=== PATIENT | female | born 1980 | race Two or more races ===

== ENCOUNTER 2018-08-20 20:19 | Emergency (ER) | payer MEDICAID ==
[~2018-08-20] VITALS: Ht 160 cm; Wt 80.7 kg
--- NOTE | 2018-08-20 20:45 | NUR ---
ED Nurse Note: pt walked in c/o right ankle pain, pt states she twisted her ankle 5months ago and continue to have pain. cms intact, ambulates w/ steady gait, clean dry and intact, cap refill <3 sec will cont monitor.
--- NOTE | 2018-08-20 21:02 | Emergency Room Report ---
History of Present Illness General Chief Complaint: Lower Extremity Injury Source: Patient Present Illness [facility] This is a 38-year-old female with no past medical history. She presents with chief point right ankle pain. She had injured his ankle 5 months ago. She rolled her ankle and had pain initially. Did not see any doctor. Since then she has intermittent pain but now worse when she walked. This has been ongoing for about a week. Pain is localized to the lateral aspect the ankle. No swelling. No fever. No trauma. Worse with walking. Better with rest. Allergies: Coded Allergies: No Known Allergies (Unverified , 08/20/18) Patient History Past Medical History: see triage record, old chart reviewed Past Surgical History: none Pertinent Family History: none Social History: Denies: smoking Now: No Immunizations: other Reviewed Nursing Documentation: PMH: Agreed; PSxH: Agreed Nursing Documentation-PMH Past Medical History: No Stated History Review of Systems Eye: Denies: eye pain, blurred vision ENT: Denies: ear pain, nose congestion, throat swelling Respiratory: Denies: cough, shortness of breath Cardiovascular: Denies: chest pain, palpitations Gastrointestinal: Denies: abdominal pain, diarrhea, nausea, vomiting Musculoskeletal: Reports: joint pain; Denies: back pain Skin: Denies: rash Neurological: Denies: headache, numbness Endocrine: Denies: increased thirst, increased urine Hematologic/Lymphatic: Denies: easy bruising All Other Systems: negative except mentioned in HPI Physical Exam Vital Signs Date Time Temp Pulse Resp B/P (MAP) Pulse Ox O2 Delivery O2 Flow Rate FiO2 08/20/18 20:35 97.9 73 16 162/77 97 Room Air vitals with high blood pressure Sp02 EP Interpretation: reviewed, normal General Appearance: well appearing, no apparent distress, alert Head: normocephalic, atraumatic Eyes: bilateral eye PERRL, bilateral eye EOMI ENT: hearing grossly normal, normal pharynx Neck: full range of motion, supple, no meningismus Respiratory: chest non-tender, lungs clear, normal breath sounds Cardiovascular #1: regular rate, rhythm, no murmur Gastrointestinal: normal bowel sounds, non tender, no mass, no organomegaly, no bruit, non-distended Musculoskeletal: back normal, gait/station normal, normal range of motion, other - Tender to palpation over lateral malleolus Psychiatric: mood/affect normal Skin: warm/dry Procedures Splinting Splinting : Consent: Verbal Location: Right ankle Pre-Made Type: JOSE ANTONIO wrap Pre-Proc Neuro Vasc Exam: normal Post-Proc Neuro Vasc Exam: normal Patient Tolerated: Well Complications: None Medical Decision Making Diagnostic Impression: Primary Impression: Right ankle sprain Qualified Codes: S93.401A - Sprain of unspecified ligament of right ankle, initial encounter ER Course Patient with right ankle pain from previous sprain. No fracture dislocation. No evidence of septic joint. We'll discharge home. Last Vital Signs Date Time Temp Pulse Resp B/P (MAP) Pulse Ox O2 Delivery O2 Flow Rate FiO2 08/20/18 20:35 97.9 73 16 162/77 97 Room Air Status: improved Disposition: HOME, SELF-CARE Condition: Stable Scripts Ibuprofen* (MOTRIN*) 600 Mg Tablet 600 MG ORAL THREE TIMES A DAY, #30 TAB 0 Refills Prov: Nj Damon MD 08/20/18 Patient Instructions: Ankle Sprain Additional Instructions: follow-up your doctor in 7 days. Return if symptoms worsen. Nj Damon MD Aug 20, 2018 21:02
[2018-08-20] MEDS ORDERED: IBUPROFEN600 MG ORAL (21:17)
[2018-08-20 21:27] VITALS: BP 162/77
--- NOTE | 2018-08-20 21:29 | NUR ---
ED Nurse Note: pt cleared to be d/c per ER provider, pt discharge and aftercare instruction provided w/ prescription, pt advised to follow up with pcp or return to ed if sx worsen or new sx develop, pt education done via discussion and hand out, pt verbalized understanding and agrees with plan, vss, ambulatory w/ steady gait, resp even and unlabored on RA. acewrap applied prior to d/c. all belongings left w/ pt. accompanied by .
== END 2018-08-20 21:30 | disposition home or self-care (01) ==
LOC: EMR 21:11
DX: S93.401A Sprain of unspecified ligament of right ankle, initial encounter (principal); X58.XXXA Exposure to other specified factors, initial encounter; Y92.009 Unspecified place in unspecified non-institutional (private) residence as the place of occurrence of the external cause
CPT/HCPCS: 99283

== ENCOUNTER 2019-05-13 12:58 | Emergency (ER) | payer MEDICAID ==
[~2019-05-13] VITALS: Ht 157.5 cm; Wt 79.8 kg
[~2019-05-13 12:58] MED LIST: IBUPROFEN600 MG ORAL
[2019-05-13 13:19] VITALS: BP 146/92
--- NOTE | 2019-05-13 13:47 | Emergency Room Report ---
History of Present Illness General Chief Complaint: Pain Source: Patient Present Illness HPI 39-year-old female with no symptom past medical history here complaining of 3 days of neck pain left shoulder pain. 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 Denies any fall or injury. Has not taken medication for symptom relief. Rating her pain 7 out of 10 starting neck and radiating to left shoulder. Patient has full range of motion and no bony tenderness is noted. No impingement sign is noted. Denies tingling and numbness at this time. Denies chest pain, shortness of breath, palpitation, and other associated symptoms. Denies fever and chills, meningismus, URI symptoms Allergies: Coded Allergies: No Known Allergies (Unverified , 08/20/18) Patient History Past Medical History: see triage record Past Surgical History: unable to obtain Pertinent Family History: none Now: No Immunizations: UTD Reviewed Nursing Documentation: PMH: Agreed; PSxH: Agreed Nursing Documentation-PMH Past Medical History: No Stated History Review of Systems All Other Systems: negative except mentioned in HPI Physical Exam Vital Signs Date Time Temp Pulse Resp B/P (MAP) Pulse Ox O2 Delivery O2 Flow Rate FiO2 05/13/19 13:04 98.2 82 17 146/92 (110) 99 Room Air Sp02 EP Interpretation: reviewed, normal General Appearance: no apparent distress, alert, GCS 15, non-toxic Head: normocephalic, atraumatic Eyes: bilateral eye normal inspection, bilateral eye PERRL ENT: hearing grossly normal, normal pharynx, no angioedema, normal voice Neck: full range of motion, supple, thyroid normal, no meningismus, no bony tend, supple/symm/no masses Respiratory: chest non-tender, lungs clear, normal breath sounds, no rhonchi, no respiratory distress, no retraction, no wheezing, speaking full sentences Cardiovascular #1: regular rate, rhythm, no edema, no murmur Cardiovascular #2: 2+ carotid (R), 2+ carotid (L), 2+ radial (R), 2+ radial (L) Gastrointestinal: normal bowel sounds, non tender, soft, non-distended, no guarding, no rebound Rectal: deferred Genitourinary: no CVA tenderness Musculoskeletal: back normal, normal range of motion, calf tenderness, gait/ station normal, non-tender Neurologic: alert, motor strength/tone normal, oriented x3, sensory intact, responsive, speech normal Psychiatric: judgement/insight normal, memory normal, mood/affect normal, no suicidal/homicidal ideation Skin: no rash Lymphatic: no adenopathy Medical Decision Making PA Attestation All diagnoses and treatment plans were reviewed and discussed with my supervising physician Dr. Haley Diagnostic Impression: Primary Impression: Cervical strain ER Course 39-year-old female with no symptom past medical history here complaining of 3 days of neck pain left shoulder pain. 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 Denies any fall or injury. Has not taken medication for symptom relief. Rating her pain 7 out of 10 starting neck and radiating to left shoulder. Patient has full range of motion and no bony tenderness is noted. No impingement sign is noted. Denies tingling and numbness at this time. Denies chest pain, shortness of breath, palpitation, and other associated symptoms. Denies fever and chills, meningismus, URI symptoms Ddx considered but are not limited to: Cervical spine sprain, strain, fracture Vital signs: are WNL, pt. is afebrile H&PE are most consistent with: Cervical strain ORDERS: No x-rays necessary as patient had no fall or injure herself and no bony tenderness is noted, ibuprofen, robaxin, lidocaine patch ER intervention: Robaxin, Toradol DISCHARGE: At this time pt. is stable for d/c to home. Will provide printed patient care instructions, and any necessary prescriptions. Care plan and follow up instructions have been discussed with the patient prior to discharge. Patient to avoid strenuous physical activity with affected side, take medication as directed, if worsening symptoms return to the emergency room Last Vital Signs Date Time Temp Pulse Resp B/P (MAP) Pulse Ox O2 Delivery O2 Flow Rate FiO2 05/13/19 13:19 98.2 82 17 146/92 99 Room Air Disposition: HOME, SELF-CARE Condition: Stable Scripts Ibuprofen (Ibu) 800 Mg Tablet 800 MG PO TID, #30 TAB Prov: Rasheeda Valenzuela 05/13/19 Methocarbamol* (ROBAXIN-500*) 500 Mg Tablet 500 MG ORAL TID PRN for For Pain, #15 TAB 0 Refills Prov: Rasheeda Valenzuela 05/13/19 Patient Instructions: Cervical Strain and Sprain With [facility] Rasheeda Valenzuela May 13, 2019 13:47
[2019-05-13] MEDS ORDERED: ROBAXIN-500MG ORAL (13:49)
[2019-05-13] MEDS ORDERED: IBU800 MG PO (13:49)
[2019-05-13 13:55] VITALS: BP 138/70
== END 2019-05-13 14:00 | disposition home or self-care (01) ==
LOC: EMR 13:58
DX: S16.1XXA Strain of muscle, fascia and tendon at neck level, initial encounter (principal); M25.512 Pain in left shoulder; X50.0XXA Overexertion from strenuous movement or load, initial encounter; Y92.9 Unspecified place or not applicable
CPT/HCPCS: 99282

== ENCOUNTER 2020-03-11 21:28 | Emergency (ER) | payer MEDICAID ==
[~2020-03-11] VITALS: Ht 154.9 cm; Wt 68.0 kg
[~2020-03-11 21:28] MED LIST changes: +IBU800 MG PO; +ROBAXIN-500MG ORAL
[2020-03-11] MEDS ORDERED: IBUPROFEN600 M1 ORAL (21:59)
[2020-03-11] MEDS ORDERED: Acetaminophen 500mg (ES) tab ORAL ONE (22:00)
--- NOTE | 2020-03-11 22:00 | Emergency Room Report ---
History of Present Illness General Chief Complaint: Lower Extremity Injury Source: Patient Present Illness HPI This is a 39-year-old female with no past medical history. She presents with chief complaint of right ankle pain. She was walking and she tripped and twisted her ankle. She has pain to the lateral aspect ankle. Swelling. No other injury. Able to walk on it. Pain is 7 out of 10. Worse with walking. Better with rest. Allergies: Coded Allergies: No Known Allergies (Unverified , 08/20/18) COVID-19 Screening Contact w/high risk pt: No Experienced COVID-19 symptoms?: No COVID-19 Testing performed CONTRACT LEAD: No Patient History Past Medical History: none, see triage record, old chart reviewed Past Surgical History: none Pertinent Family History: none Social History: Denies: smoking Now: No Immunizations: other Reviewed Nursing Documentation: PMH: Agreed; PSxH: Agreed Nursing Documentation-PMH Hx Hypertension: Yes Review of Systems Eye: Denies: eye pain, blurred vision ENT: Denies: ear pain, nose congestion, throat swelling Respiratory: Denies: cough, shortness of breath Cardiovascular: Denies: chest pain, palpitations Gastrointestinal: Denies: abdominal pain, diarrhea, nausea, vomiting Musculoskeletal: Reports: joint pain; Denies: back pain Skin: Denies: rash Neurological: Denies: headache, numbness Endocrine: Denies: increased thirst, increased urine Hematologic/Lymphatic: Denies: easy bruising All Other Systems: negative except mentioned in HPI Physical Exam Vital Signs Date Time Temp Pulse Resp B/P (MAP) Pulse Ox O2 Delivery O2 Flow Rate FiO2 03/11/20 21:34 98.8 73 16 151/86 (107) 98 Room Air Vitals with high blood pressure Sp02 EP Interpretation: reviewed, normal General Appearance: well appearing, no apparent distress, alert Head: normocephalic, atraumatic Eyes: bilateral eye PERRL, bilateral eye EOMI ENT: hearing grossly normal, normal pharynx Neck: full range of motion, supple, no meningismus Respiratory: chest non-tender, lungs clear, normal breath sounds Cardiovascular #1: regular rate, rhythm, no murmur Gastrointestinal: normal bowel sounds, non tender, no mass, no organomegaly, no bruit, non-distended Musculoskeletal: back normal, normal range of motion, gait/station normal, other - Right ankle: She has tenderness and edema to the lateral malleolus. Ankle is stable. No pain over the foot or the base of the fifth metatarsal marilyn ne. Pulse normal. Knee nontender. Psychiatric: mood/affect normal Procedures Splinting Splinting : Consent: Verbal Location: Right ankle Pre-Made Type: JOSE ANTONIO wrap Pre-Proc Neuro Vasc Exam: normal Post-Proc Neuro Vasc Exam: normal Patient Tolerated: Well Complications: None Medical Decision Making Diagnostic Impression: Primary Impression: Ankle sprain Qualified Codes: S93.401A - Sprain of unspecified ligament of right ankle, initial encounter ER Course Patient presents with an ankle sprain. No fracture dislocation. Other X-Ray Diagnostic Results Other X-Ray Diagnostic Results : X-Ray ordered: Right ankle x-rays # of Views/Limited Vs Complete: 3 View Indication: Pain EP Interpretation: Yes Interpretation: no dislocation, no soft tissue swelling, no fractures Impression: No acute disease Electronically Signed by: Nj Damon MD Last Vital Signs Date Time Temp Pulse Resp B/P (MAP) Pulse Ox O2 Delivery O2 Flow Rate FiO2 03/11/20 21:34 98.8 73 16 151/86 (107) 98 Room Air Status: improved Disposition: HOME, SELF-CARE Condition: Stable Scripts Ibuprofen* (MOTRIN*) 600 Mg Tablet 600 MG ORAL Q6H PRN for For Pain, #30 TAB 0 Refills Prov: Nj Damon MD 03/11/20 Patient Instructions: Ankle Sprain Additional Instructions: Elevate leg. Ice pack to the area. Follow-up with your doctor in 7 days. Return if worse. Nj Damon MD Mar 11, 2020 22:00
[2020-03-11 22:05] VITALS: BP 140/85
--- NOTE | 2020-03-12 13:46 | Diagnostic Imaging Report ---
INDICATION: Ankle pain TECHNIQUE: XRAY Ankle Compl Min 3v R Multiple views of the None were obtained COMPARISON: Right ankle radiographs dated 08/20/2018 FINDINGS: There is no acute fracture or dislocation. Joint spaces are maintained. Talar dome is unremarkable. Mild to moderate circumferential soft tissue swelling around the ankle. And ankle mortise is preserved on these nonstress views. IMPRESSION: No acute fracture or dislocation.
== END 2020-03-11 22:05 | disposition home or self-care (01) ==
LOC: EMR 22:00
DX: S93.401A Sprain of unspecified ligament of right ankle, initial encounter (principal); W01.0XXA Fall on same level from slipping, tripping and stumbling without subsequent striking against object, initial encounter; Y92.9 Unspecified place or not applicable; I10 Essential (primary) hypertension
CPT/HCPCS: 73610; Z7502; 99283